=== PATIENT | female | born 1955 | race Caucasian/White ===

== ENCOUNTER 2017-05-05 08:16 | Emergency (ER) | payer OTHER ==
[2017-05-05 08:40] VITALS: BP 124/59; PULSE 75; TEMP 97.6; BMI 33.3
--- NOTE | 2017-05-05 09:12 | PDOC ---
History of Present Illness - General Chief Complaint: Sore Throat Stated Complaint: SORE THROAT Time Seen by Provider: 05/05/17 08:56 History Source: Patient Exam Limitations: No Limitations - History of Present Illness Initial Comments: 05/05/17 09:04Patient is here with complaints of sinus congestion, frontal headache, runny nose and cough with thick yellow phlegm. is ill with same. Was caring for granddaughter last week who had same illness. Has used Tylenol or Motrin with minimal resolved. Timing/Duration: unsure, 24 hours Severity: mild, moderate Associated Symptoms: reports: fever/chills, headaches, loss of appetite, malaise Past History - Past Medical History Allergies/Adverse Reactions: Allergies Allergy/AdvReac Type Severity Reaction Status Date / Time No Known Drug Allergies Allergy Verified 05/05/17 08:41 Home Medications: Ambulatory Orders Aspirin [Aspirin EC] 81 mg PO DAILY 07/05/14 Atorvastatin Ca [Lipitor] 40 mg PO HS 07/05/14 Calcium Carbonate/Vitamin D3 [Calcium 600-Vit D3 200 Tablet] 1 each PO BID 07/05 Carvedilol [Coreg] 25 mg PO BID 07/05/14 Furosemide [Lasix -] 40 mg PO DAILY 07/05/14 Glipizide [Glipizide Xl] 5 mg PO BID 07/05/14 Metformin HCl [Glucophage] 1,500 mg PO DAILY 07/05/14 Multivitamins [Multivit ([facility] Form[facility])] 1 tab PO DAILY 07/05/14 Warfarin Sodium [Coumadin] 5 mg PO DAILY 07/05/14 Azithromycin [Zithromax -] 250 mg PO UTDICT #6 tab 05/05/17 Anemia: No Asthma: No Cancer: No Cardiac Disorders: Yes (HX [place],BYPASS SX) CVA: Yes COPD: No CHF: No Dementia: No Diabetes: Yes GI Disorders: Yes (GERD) Disorders: No HTN: Yes Hypercholesterolemia: Yes Liver Disease: No Seizures: No Thyroid Disease: No - Surgical History Abdominal Surgery: (TUBAL LIGATION) Appendectomy: No Cardiac Surgery: Yes (BYPASS SX 2003) Cholecystectomy: No Lung Surgery: No Neurologic Surgery: No Orthopedic Surgery: No - Immunization History Immunization Up to Date: Yes - Suicide/Smoking/Psychosocial Hx Smoking Status: No Smoking History: Never smoked Have you smoked in the past 12 months: Yes Number of Cigarettes Smoked Daily: 0 If you are a former smoker, when did you quit?: 40YRS AGO Information on smoking cessation initiated: No Hx Alcohol Use: No Drug/Substance Use Hx: No Substance Use Type: None Hx Substance Use Treatment: No Review of Systems - Review of Systems Able to Perform ROS?: Yes Is the patient limited Sami proficient: Yes Constitutional: Yes: Symptoms Reported, See HPI, Chills, Fever, Loss of Appetite , Malaise HEENTM: Yes: Symptoms Reported, See HPI, Nose Congestion, Throat Pain Respiratory: Yes: Symptoms reported, See HPI, Cough. No: Wheezing ABD/GI: Yes: Symptoms Reported, Nausea Musculoskeletal: Yes: Symptoms Reported Integumentary: No: Symptoms Reported Neurological: Yes: Symptoms reported, See HPI, Headache (frontal ) All Other Systems: Reviewed and Negative *Physical Exam - Vital Signs Last Vital Signs Temp Pulse Resp BP Pulse Ox 97.6 F 75 18 124/59 100 05/05/17 08:37 05/05/17 08:37 05/05/17 08:37 05/05/17 08:37 05/05/17 08:37 - Physical Exam General Appearance: Yes: Nourished, Appropriately Dressed, Apparent Distress, Mild Distress HEENT: positive: EOMI, TINO, TMs Normal, Pharynx Normal (mild erythema), Pharyngeal Erythema, Nasal Congestion, Rhinorrhea, Sinus Tenderness. negative: Normal ENT Inspection Neck: positive: Supple, Lymphadenopathy (R), Lymphadenopathy (L). negative: Tender Respiratory/Chest: positive: Lungs Clear (but coarse bilateral ), Normal Breath Sounds Cardiovascular: positive: Regular Rate Gastrointestinal/Abdominal: positive: Normal Bowel Sounds, Soft Musculoskeletal: positive: Normal Inspection Extremity: positive: Normal Capillary Refill Integumentary: positive: Normal Color, Dry, Warm, Pale Neurologic: positive: job molder II-XII NML intact, Fully Oriented, Alert, Normal Mood/ Affect, Normal Response, Motor Strength 5/5 *DC/Admit/Observation/Transfer Diagnosis at time of Disposition: Upper respiratory infection Qualifiers: URI type: unspecified viral URI Qualified Code(s): J06.9 - Acute upper respiratory infection, unspecified; B97.89 - Other viral agents as the cause of diseases classified elsewhere; B97.89 - Other viral agents as the cause of diseases classified elsewhere - Discharge Dispostion Disposition: HOME Condition at time of disposition: Stable Admit: No - Referrals Referrals: Makayla Mireles MD [Primary Care Provider] - - Patient Instructions Printed Discharge Instructions: DI for Viral Upper Respiratory Infection -- Adult Additional Instructions: Rest, drink lots of fluids: Teas, water, soups, Pedialyte Saltwater gargles Steamy showers/seem to face break up mucus Avoid contact with others until fevers and cough resolved Lots of handwashing and good hygiene Continue [id number] medications for symptomatic relief Tylenol or Motrin for fever and pain Azithromycin as directed Followup with private physician in one to 2 days as needed Return to emergency department for worsened symptoms, fevers, dehydration - Post Discharge Activity Forms/Work/School Notes: Back to Work
== END 2017-05-05 09:12 | disposition home or self-care (01) ==
LOC: JERFT 08:16
DX: J06.9 Acute upper respiratory infection, unspecified (principal); B97.89 Other viral agents as the cause of diseases classified elsewhere; I25.10 Atherosclerotic heart disease of native coronary artery without angina pectoris; I10 Essential (primary) hypertension; Z95.1 Presence of aortocoronary bypass graft; E11.9 Type 2 diabetes mellitus without complications; Z79.84 Long term (current) use of oral hypoglycemic drugs; Z86.73 Personal history of transient ischemic attack (TIA), and cerebral infarction without residual deficits
CPT/HCPCS: 99281-25

== ENCOUNTER 2017-06-21 17:52 | Emergency (ER) | payer OTHER ==
--- NOTE | 2017-06-21 18:05 | PDOC ---
Rapid Medical Evaluation Time Seen by Provider: 06/21/17 18:03 Medical Evaluation: Allergies Allergy/AdvReac Type Severity Reaction Status Date / Time No Known Drug Allergies Allergy Verified 06/21/17 18:03 I have performed a brief in-person evaluation of this patient. The patient presents with a chief complaint of: left big toe swelling, redness and pain. Patient is a diabetic. Pt is concerned it's infected. Pertinent physical exam findings: swelling and erythema to distal left big toe. Area is TTP. I have ordered the following: nothing The patient will proceed to the ED for further evaluation.
[2017-06-21 18:08] VITALS: BP 156/61; PULSE 75; TEMP 98; BMI 33.3
--- NOTE | 2017-06-21 19:08 | PDOC ---
History of Present Illness - General Chief Complaint: Redness To Affected Area Stated Complaint: PAIN Time Seen by Provider: 06/21/17 18:03 History Source: Patient Exam Limitations: No Limitations - History of Present Illness Initial Comments: 06/21/17 19:10 61 yr female with ingrown toenail for 3 days. pt denies fever no chills. Past History - Past Medical History Allergies/Adverse Reactions: Allergies Allergy/AdvReac Type Severity Reaction Status Date / Time No Known Drug Allergies Allergy Verified 06/21/17 18:03 Home Medications: Ambulatory Orders Aspirin [Aspirin EC] 81 mg PO DAILY 07/05/14 Atorvastatin Ca [Lipitor] 40 mg PO HS 07/05/14 Calcium Carbonate/Vitamin D3 [Calcium 600-Vit D3 200 Tablet] 1 each PO BID 07/05 Carvedilol [Coreg] 25 mg PO BID 07/05/14 Furosemide [Lasix -] 40 mg PO DAILY 07/05/14 Glipizide [Glipizide Xl] 5 mg PO BID 07/05/14 Metformin HCl [Glucophage] 1,500 mg PO DAILY 07/05/14 Multivitamins [Multivit ([facility] Form[facility])] 1 tab PO DAILY 07/05/14 Warfarin Sodium [Coumadin] 5 mg PO DAILY 07/05/14 Azithromycin [Zithromax -] 250 mg PO UTDICT #6 tab 05/05/17 Cephalexin [Keflex] 250 mg PO QID #28 capsule 06/21/17 Gabapentin [Neurontin -] 300 mg PO Q8H 06/21/17 Anemia: No Asthma: No Cancer: No Cardiac Disorders: Yes (HX [place],BYPASS SX, COUMADIN) CVA: Yes COPD: No CHF: No DVT: No Dementia: No Diabetes: Yes GI Disorders: Yes (GERD) Disorders: No HTN: Yes Hypercholesterolemia: Yes Liver Disease: No Seizures: No Thyroid Disease: No - Surgical History Abdominal Surgery: Yes (TUBAL LIGATION) Appendectomy: No Cardiac Surgery: Yes (BYPASS SX 2003) Cholecystectomy: No Lung Surgery: No Neurologic Surgery: No Orthopedic Surgery: No - Immunization History Immunization Up to Date: Yes - Suicide/Smoking/Psychosocial Hx Smoking Status: No Smoking History: Never smoked Have you smoked in the past 12 months: Yes Number of Cigarettes Smoked Daily: 0 If you are a former smoker, when did you quit?: 40YRS AGO Information on smoking cessation initiated: No Hx Alcohol Use: No Drug/Substance Use Hx: No Substance Use Type: None Hx Substance Use Treatment: No *Physical Exam - Vital Signs Last Vital Signs Temp Pulse Resp BP Pulse Ox 98.0 F 75 18 156/61 100 06/21/17 18:03 06/21/17 18:03 06/21/17 18:03 06/21/17 18:03 06/21/17 18:03 - Physical Exam General Appearance: Yes: Nourished, Appropriately Dressed HEENT: positive: EOMI, TINO Neck: positive: Supple Musculoskeletal: positive: Normal Inspection Extremity: positive: Normal Capillary Refill, Normal Inspection, Normal Range of Motion, Other (left great toe with ingrown toenail mild reness no pus drainage no streaking ) Integumentary: positive: Normal Color Neurologic: positive: Fully Oriented, Alert, Normal Mood/Affect, Normal Response , Motor Strength 5/5 Medical Decision Making - Medical Decision Making 06/21/17 19:13 cc: no fever no streaking up the toe or foot no deformity will have pt soak the foot in warm epsom salt water keflex as directed return to the ER if any worsening symptoms *DC/Admit/Observation/Transfer Diagnosis at time of Disposition: Ingrown toenail - Discharge Dispostion Disposition: HOME Condition at time of disposition: Good - Prescriptions Prescriptions: Cephalexin [Keflex] 250 mg PO QID #28 capsule - Referrals Referrals: Lorrie Sanches MD [Primary Care Provider] - - Patient Instructions Printed Discharge Instructions: DI for Ingrown Toenail Additional Instructions: soak toe in warm salt water 2-3 times a day and keep foot dry take the antibiotic as prescribed follow with the heat pump installer at your clinic next week return if worse, any fever, increased redness streaking up the leg - Post Discharge Activity
== END 2017-06-21 19:33 | disposition home or self-care (01) ==
LOC: JERFT 17:52
DX: L60.0 Ingrowing nail (principal); I25.810 Atherosclerosis of coronary artery bypass graft(s) without angina pectoris; I10 Essential (primary) hypertension; Z95.1 Presence of aortocoronary bypass graft; I25.2 Old myocardial infarction; E78.00 Pure hypercholesterolemia, unspecified; E11.9 Type 2 diabetes mellitus without complications; Z79.84 Long term (current) use of oral hypoglycemic drugs; K21.9 Gastro-esophageal reflux disease without esophagitis
CPT/HCPCS: 99281-25

== ENCOUNTER 2017-12-16 07:39 | Emergency (ER) | payer OTHER ==
[2017-12-16 08:17] VITALS: BP 135/65; PULSE 59; TEMP 97.8; BMI 33.8
--- NOTE | 2017-12-16 08:30 | PDOC ---
History of Present Illness - General Stated Complaint: ARM PAIN Time Seen by Provider: 12/16/17 08:23 History Source: Patient Exam Limitations: No Limitations - History of Present Illness Initial Comments: 12/16/17 08:38 62 yr female with right shoulder pain after lifting heavy groceries 3 days ago. pt took tylenol with no relief. Pt states pain with lifting the arm no history of injury in the past. Past History - Past Medical History Allergies/Adverse Reactions: Allergies Allergy/AdvReac Type Severity Reaction Status Date / Time No Known Drug Allergies Allergy Verified 12/16/17 08:22 Home Medications: Ambulatory Orders Aspirin [Aspirin EC] 81 mg PO DAILY 07/05/14 Atorvastatin Ca [Lipitor] 40 mg PO HS 07/05/14 Calcium Carbonate/Vitamin D3 [Calcium 600-Vit D3 200 Tablet] 1 each PO BID 07/05 Carvedilol [Coreg] 25 mg PO BID 07/05/14 Furosemide [Lasix -] 40 mg PO DAILY 07/05/14 Glipizide [Glipizide Xl] 5 mg PO BID 07/05/14 Metformin HCl [Glucophage] 1,500 mg PO DAILY 07/05/14 Multivitamins [Multivit ([facility])] 1 tab PO DAILY 07/05/14 Warfarin Sodium [Coumadin] 5 mg PO DAILY 07/05/14 Gabapentin [Neurontin -] 300 mg PO Q8H 06/21/17 Cyclobenzaprine HCl [Flexeril -] 10 mg PO TID PRN #21 tablet 12/16/17 Anemia: No Asthma: No Cancer: No Cardiac Disorders: Yes (HX [place],BYPASS SX, COUMADIN) CVA: Yes COPD: No CHF: No DVT: No Dementia: No Diabetes: Yes GI Disorders: Yes (GERD) Disorders: No HTN: Yes Hypercholesterolemia: Yes Liver Disease: No Seizures: No Thyroid Disease: No - Surgical History Abdominal Surgery: Yes (TUBAL LIGATION) Appendectomy: No Cardiac Surgery: Yes (BYPASS SX 2003) Cholecystectomy: No Lung Surgery: No Neurologic Surgery: No Orthopedic Surgery: No - Immunization History Immunization Up to Date: Yes - Suicide/Smoking/Psychosocial Hx Smoking Status: No Smoking History: Never smoked Have you smoked in the past 12 months: No Number of Cigarettes Smoked Daily: 0 If you are a former smoker, when did you quit?: 40YRS AGO Information on smoking cessation initiated: No Hx Alcohol Use: No Drug/Substance Use Hx: No Substance Use Type: None Hx Substance Use Treatment: No *Physical Exam - Vital Signs Last Vital Signs Temp Pulse Resp BP Pulse Ox 97.8 F 59 L 20 135/65 98 12/16/17 08:10 12/16/17 08:10 12/16/17 08:10 12/16/17 08:10 12/16/17 08:10 *DC/Admit/Observation/Transfer Diagnosis at time of Disposition: Muscle strain of anterior chest wall - Discharge Dispostion Disposition: HOME Condition at time of disposition: Good - Prescriptions Prescriptions: Cyclobenzaprine HCl [Flexeril -] 10 mg PO TID PRN #21 tablet PRN Reason: Muscle Spasms - Referrals Referrals: Lorrie Sanches MD [Primary Care Provider] - Jj Fernandez MD [Staff Physician] - - Patient Instructions Additional Instructions: please apply warm compresses every 3-4hrs for 20-30 minutes apply a topical rubbing cream such as Bengay, Biofreeze, ICY Hot (all over the counter ) to the area of pain use the sling while awake remove to sleep and bathe take flexeril as directed for muscle spasm, pain you can take with extra strenght tylenol for maximum effect follow with the orthopedist Dr. Fernandez for follow up this week - Post Discharge Activity
== END 2017-12-16 09:04 | disposition home or self-care (01) ==
LOC: JER 07:39 → JERFT 07:39
DX: S29.011A Strain of muscle and tendon of front wall of thorax, initial encounter (principal); X50.0XXA Overexertion from strenuous movement or load, initial encounter; Y93.89 Activity, other specified; Y92.9 Unspecified place or not applicable; I10 Essential (primary) hypertension; E78.5 Hyperlipidemia, unspecified; I25.2 Old myocardial infarction; E11.9 Type 2 diabetes mellitus without complications; K21.9 Gastro-esophageal reflux disease without esophagitis; Z95.1 Presence of aortocoronary bypass graft; Z79.01 Long term (current) use of anticoagulants; Z79.82 Long term (current) use of aspirin; Z79.84 Long term (current) use of oral hypoglycemic drugs
CPT/HCPCS: 73030-TC-RT-FY; 99281-25

== ENCOUNTER 2020-05-19 19:17 | Emergency (ER) | payer OTHER ==
[2020-05-19 19:50] VITALS: TEMP 98.6; BMI 33.3
[2020-05-19] MEDS ORDERED: BACITRACIN 15 GM TUBE TOPICAL OINTMENT TP ONE (22:40)
[2020-05-19] MEDS ORDERED: CLINDAMYCIN HCL 150 MG CAPSULE (FP) PO ONE (22:41)
[2020-05-19] MEDS ORDERED: BACITRACIN 0.9 GM PACKET ONE (23:16)
[2020-05-19] MEDS ORDERED: CLINDAMYCIN HCL 150 MG CAPSULE (FP) ONE (23:16)
[2020-05-19 23:47] VITALS: BP 133/70; PULSE 81
== END 2020-05-19 23:48 | disposition home or self-care (01) ==
LOC: JER 19:17
DX: L03.031 Cellulitis of right toe (principal)
CPT/HCPCS: 87070; 87205; 99284-25